=== PATIENT | female | born 1970 | race Hispanic/Latino ===

== ENCOUNTER 2018-12-11 16:45 | Emergency (ER) | payer SELFPAY ==
[2018-12-11] MEDS ORDERED: MAG HYDROX/AL HYDROX/SIMETH ES 30 ML SUSP UDCUP ONE (17:17)
[2018-12-11] MEDS ORDERED: DICYCLOMINE HCL 20 MG TAB ONE (17:17)
[2018-12-11] MEDS ORDERED: LIDOCAINE HCL 2% VISCOUS 15 ML UDCUP ONE (17:17)
[2018-12-11 17:21] LABS: BASOPHILS % (AUTO) 0.3 % (0.0-5.0); EOSINOPHILS % (AUTO) 1.9 % (0.0-8.0); HEMATOCRIT 37.4 % (36-48); LYMPHOCYTES % (AUTO) 29.3 % (21.0-51.0); MEAN CORPUSCULAR HEMOGLOBIN 31.4 pg (27.0-33.0); MEAN CORPUSCULAR HGB CONC 34.9 g/dL (32.0-36.0); NEUTROPHILS % (AUTO) 61.5 % (40.0-77.0); PLATELET COUNT (AUTO) 296 K/uL (130-400); RED BLOOD CELL COUNT(AUTO) 4.15 MIL/uL (4.00-5.50); RED CELL DISTRIBUTION WIDTH 12.4 % (11.0-15.5); WHITE BLOOD COUNT (AUTO) 8.4 K/uL (4.8-10.8)
[2018-12-11 17:31] LABS: APPEARANCE,URINE Cloudy (CLEAR); BILIRUBIN,URINE Negative (NEGATIVE); COLOR,URINE Dark Yellow (YELLOW); GLUCOSE, URINE (UA) >=1000 mg/dL (NEGATIVE); KETONES,URINE Negative (NEGATIVE); LEUKOCYTE ESTERASE ,URINE Small (NEGATIVE); NITRATE,URINE Negative (NEGATIVE); OCCULT BLOOD,URINE Negative (NEGATIVE); PROTEIN,URINE Negative (NEGATIVE)
[2018-12-11 17:32] LABS: CREATININE 0.6 mg/dL (0.5-1.5); POTASSIUM 3.9 mmol/L (3.5-5.1)
[2018-12-11 17:37] LABS: ALBUMIN 3.6 g/dL (3.5-5.0); BILIRUBIN,TOTAL 0.2 mg/dL (0.2-1.0); TOTAL PROTEIN, SERUM 7.3 g/dL (6.0-8.3)
[2018-12-11 17:40] LABS: BACTERIA,URINE Few /HPF (None Seen); MUCUS,URINE Few LPF (None Seen); RBC,URINE 0-1 /HPF (0-1); SQUAMOUS EPITHELIAL CELL,UR Moderate /HPF (0-2)
== END 2018-12-11 17:56 | disposition home or self-care (01) ==
LOC: EDH 16:45
DX: K29.70 Gastritis, unspecified, without bleeding (principal); E11.9 Type 2 diabetes mellitus without complications; E78.5 Hyperlipidemia, unspecified; Z90.49 Acquired absence of other specified parts of digestive tract; Z90.710 Acquired absence of both cervix and uterus
CPT/HCPCS: 36415; 80053; 81001; 82150; 83690; 85025

== ENCOUNTER 2020-07-01 15:05 | Inpatient (IN) | payer SELFPAY ==
[~2020-07-01] VITALS: Ht 149.9 cm; Wt 50.3 kg
[2020-07-01] MEDS ORDERED: BIVALIRUDIN 250 MG/VIAL IV ONE (15:31)
[2020-07-01] MEDS ORDERED: NITROGLYCERIN 2 MG/VIAL VIAL IV ONE (15:31)
[2020-07-01] MEDS ORDERED: LIDOCAINE HCL 2% 20ML ONE (15:32)
[2020-07-01] MEDS ORDERED: IOHEXOL-350 50ML VIAL IV ONE (15:32)
[2020-07-01] MEDS ORDERED: IOHEXOL 350 MG/ML 100ML INFUS..BTL IV ONE (15:32)
[2020-07-01] MEDS ORDERED: ASPI-1005 PO (16:17)
[2020-07-01] MEDS ORDERED: SITA100T12 PO (16:17)
[2020-07-01] MEDS ORDERED: OMEP20CA12 PO (16:17)
[2020-07-01] MEDS ORDERED: ATOR10 PO (16:17)
[2020-07-01] MEDS ORDERED: METF-446 PO (16:17)
[2020-07-01] MEDS ORDERED: LISI-809 PO (16:17)
[2020-07-01] MEDS ORDERED: MIDAZOLAM HCL 1 MG/ML 2ML VIAL ONE (16:35)
[2020-07-01] MEDS ORDERED: FENTANYL CITRATE PF 50 MCG/1 ML 2ML VIAL ONE (16:35)
[2020-07-01] MEDS ORDERED: METOPROLOL TARTRATE 1 MG/ML 5ML VIAL IV ONE (17:23)
[2020-07-01] MEDS ORDERED: DEXTROSE 50%-WATER 50 ML DISP.SYRIN IV PRN (18:00)
[2020-07-01] MEDS ORDERED: SODIUM CHLORIDE 0.9% 1000ML 1,000 ML IV SCH (18:00)
[2020-07-01 18:45] VITALS: BP 136/94
[2020-07-01 19:10] VITALS: BP 128/75
[2020-07-01] MEDS: INSULIN HUMULIN R 100 UNIT/ML 3ML SQ SCH (21:00)
[2020-07-01] MEDS: RANOLAZINE 500 MG TAB.SR.12H PO SCH (21:07)
[2020-07-01 23:56] VITALS: BP 106/66
[2020-07-02 03:02] VITALS: BP 105/63
[2020-07-02 05:35] LABS: BASOPHILS % (AUTO) 0.4 % (0.0-5.0); EOSINOPHILS % (AUTO) 1.4 % (0.0-8.0); HEMATOCRIT 32.3 % (36-48); LYMPHOCYTES % (AUTO) 38.2 % (21.0-51.0); MEAN CORPUSCULAR HEMOGLOBIN 30.5 pg (27.0-33.0); MEAN CORPUSCULAR HGB CONC 35.6 g/dL (32.0-36.0); MEAN CORPUSCULAR VOLUME 85.7 fL (79-99); MONOCYTES % (AUTO) 7.9 % (3.0-13.0); NEUTROPHILS % (AUTO) 51.8 % (40.0-77.0); PLATELET COUNT (AUTO) 289 K/uL (130-400); RED BLOOD CELL COUNT(AUTO) 3.77 MIL/uL (4.00-5.50); RED CELL DISTRIBUTION WIDTH 11.9 % (11.0-15.5); WHITE BLOOD COUNT (AUTO) 7.9 K/uL (4.8-10.8)
[2020-07-02 05:41] LABS: HEMOGLOBIN A1C 9.2 % (4.0-6.0)
[2020-07-02 05:54] LABS: INR 1.03 (0.85-1.15); PROTHROMBIN TIME 11.2 SEC (9.6-11.6)
[2020-07-02 05:55] LABS: PARTIAL THROMBOPLASTIN TIME 26.5 SEC (26.3-35.5)
[2020-07-02 06:06] LABS: ALBUMIN 2.9 g/dL (3.5-5.0); BILIRUBIN,TOTAL 0.3 mg/dL (0.2-1.0); CREATININE 0.7 mg/dL (0.5-1.5); POTASSIUM 3.6 mmol/L (3.5-5.1); THYROID STIMULATING HORMONE 2.29 uIU/mL (0.36-3.74); TOTAL PROTEIN, SERUM 6.3 g/dL (6.0-8.3)
[2020-07-02] MEDS: INSULIN HUMULIN R 100 UNIT/ML 3ML SQ SCH ×4 (06:12→20:49)
[2020-07-02 08:24] VITALS: BP 104/66
[2020-07-02] MEDS: RANOLAZINE 500 MG TAB.SR.12H PO SCH ×2 (10:11→20:42)
[2020-07-02] MEDS: ATORVASTATIN CALCIUM 40 MG TABLET PO SCH (10:11)
[2020-07-02] MEDS: METOPROLOL SUCCINATE 50 MG TAB.SR.24H PO SCH (10:12)
[2020-07-02] MEDS: ISOSORBIDE MONO 30MG TAB SR PO SCH (10:12)
[2020-07-02] MEDS: ASPIRIN 81MG TAB.CHEW PO SCH (10:12)
[2020-07-02] MEDS: CLOPIDOGREL BISULFATE 75 MG TAB PO SCH (10:12)
[2020-07-02] MEDS: PANTOPRAZOLE SODIUM 40 MG TABLET.DR PO SCH (10:12)
[2020-07-02 12:00] VITALS: BP_SYST 105; BP_SYST 84; BP_DIAS 51; BP_DIAS 53
[2020-07-02 17:29] VITALS: BP 108/69
[2020-07-02 19:28] VITALS: BP 85/54
[2020-07-02 23:11] VITALS: BP 90/56
[2020-07-03 03:04] VITALS: BP 99/65
[2020-07-03 05:49] LABS: MEAN CORPUSCULAR HEMOGLOBIN 30.5 pg (27.0-33.0); MEAN CORPUSCULAR HGB CONC 34.8 g/dL (32.0-36.0); MEAN CORPUSCULAR VOLUME 87.6 fL (79-99); RED BLOOD CELL COUNT(AUTO) 3.54 MIL/uL (4.00-5.50); WHITE BLOOD COUNT (AUTO) 8.5 K/uL (4.8-10.8)
[2020-07-03 06:07] LABS: CREATININE 0.6 mg/dL (0.5-1.5); POTASSIUM 3.3 mmol/L (3.5-5.1)
[2020-07-03] MEDS: INSULIN HUMULIN R 100 UNIT/ML 3ML SQ SCH ×2 (06:20→11:30)
[2020-07-03] MEDS ORDERED: ONDANSETRON HCL 4 MG/2 ML VIAL IVP PRN (07:00)
[2020-07-03] MEDS: ASPIRIN 81MG TAB.CHEW PO SCH (08:24)
[2020-07-03] MEDS: ISOSORBIDE MONO 30MG TAB SR PO SCH (08:25)
[2020-07-03] MEDS: PANTOPRAZOLE SODIUM 40 MG TABLET.DR PO SCH (08:25)
[2020-07-03] MEDS: ATORVASTATIN CALCIUM 40 MG TABLET PO SCH (08:25)
[2020-07-03] MEDS: RANOLAZINE 500 MG TAB.SR.12H PO SCH (08:25)
[2020-07-03] MEDS: METOPROLOL SUCCINATE 50 MG TAB.SR.24H PO SCH (08:25)
[2020-07-03] MEDS: CLOPIDOGREL BISULFATE 75 MG TAB PO SCH (08:25)
[2020-07-03 09:15] VITALS: BP 129/75
[2020-07-03] MEDS ORDERED: POTASSIUM CHLORIDE 10MEQ/100ML 100 ML IV PRN (09:45)
[2020-07-03] MEDS ORDERED: POTASSIUM CHLORIDE 10% ELIXIR 20 MEQ/15 ML UDCUP PO PRN (09:45)
[2020-07-03] MEDS ORDERED: LIDOCAINE HCL-MPF 1% 2ML VIAL IV PRN (09:45)
[2020-07-03] MEDS: POTASSIUM CHLORIDE 20 MEQ ERTAB PO PRN ×2 (10:46→10:54)
[2020-07-03] MEDS ORDERED: RANO500T2 PO (10:51)
[2020-07-03] MEDS ORDERED: ASPI-1005 PO (10:51)
[2020-07-03] MEDS ORDERED: ATOR40TA69 PO (10:51)
[2020-07-03] MEDS ORDERED: Isosorbide Mono 30MG Tab Sr PO (10:51)
[2020-07-03] MEDS ORDERED: METO50TA9 PO (10:51)
[2020-07-03] MEDS ORDERED: CLOP75TA14 PO (10:51)
== END 2020-07-03 12:50 | disposition home or self-care (01) | DRG 287 ==
LOC: 4BH 16:15
PROVIDERS: ADMIT Family Medicine; ATTEND Family Medicine
PROC: B2111ZZ Fluoroscopy of Multiple Coronary Arteries using Low Osmolar Contrast (ICD-10-PCS; principal; 2020-07-01)
PROC: B2151ZZ Fluoroscopy of Left Heart using Low Osmolar Contrast (ICD-10-PCS; 2020-07-01)
PROC: 4A023N7 Measurement of Cardiac Sampling and Pressure, Left Heart, Percutaneous Approach (ICD-10-PCS; 2020-07-01)
PROC: B41F1ZZ Fluoroscopy of Right Lower Extremity Arteries using Low Osmolar Contrast (ICD-10-PCS; 2020-07-01)
DX: I25.119 Atherosclerotic heart disease of native coronary artery with unspecified angina pectoris (principal); I25.5 Ischemic cardiomyopathy; E11.9 Type 2 diabetes mellitus without complications; E78.5 Hyperlipidemia, unspecified; Z90.710 Acquired absence of both cervix and uterus; Z90.49 Acquired absence of other specified parts of digestive tract
CPT/HCPCS: 36415; 71045; 80048; 80053; 80061; 82948; 83036; 84443; 85025; 85027; 85610; 85730; 93458; 99156; 99157; C1760; C1894; G0378; J0583; J1644; J1815; J2250; J2405; J3010; J3490; Q9967

== ENCOUNTER 2020-10-14 14:58 | Emergency (ER) | payer SELFPAY ==
[~2020-10-14] VITALS: Ht 149.9 cm; Wt 49.9 kg
[~2020-10-14 14:58] MED LIST: ASPI-1005 PO; ATOR10 PO; ATOR40TA69 PO; CLOP75TA14 PO; Isosorbide Mono 30MG Tab Sr PO; LISI-809 PO; METF-446 PO; METO50TA9 PO; OMEP20CA12 PO; RANO500T2 PO; SITA100T12 PO
[2020-10-14 16:12] LABS: BASOPHILS % (AUTO) 0.5 % (0.0-5.0); EOSINOPHILS % (AUTO) 0.9 % (0.0-8.0); HEMATOCRIT 40.2 % (36-48); LYMPHOCYTES % (AUTO) 31.9 % (21.0-51.0); MEAN CORPUSCULAR HEMOGLOBIN 30.9 pg (27.0-33.0); MEAN CORPUSCULAR HGB CONC 34.1 g/dL (32.0-36.0); MEAN CORPUSCULAR VOLUME 90.5 fL (79-99); MONOCYTES % (AUTO) 6.1 % (3.0-13.0); NEUTROPHILS % (AUTO) 60.4 % (40.0-77.0); PLATELET COUNT (AUTO) 303 K/uL (130-400); RED BLOOD CELL COUNT(AUTO) 4.44 MIL/uL (4.00-5.50); WHITE BLOOD COUNT (AUTO) 8.5 K/uL (4.8-10.8)
[2020-10-14 16:24] LABS: INR 0.93 (0.85-1.15); PROTHROMBIN TIME 10.2 SEC (9.6-11.6)
[2020-10-14 16:36] LABS: CARBON DIOXIDE 31 mmol/L (21-32); CHLORIDE 100 mmol/L (101-111); CREATININE 0.9 mg/dL (0.5-1.5); GLOMERULAR FILTR. RATE CALC 71 mL/min (>60); GLUCOSE,RANDOM 183 mg/dL (70-105); POTASSIUM 5.2 mmol/L (3.5-5.1); SODIUM SERUM 137 mmol/L (136-145); UREA NITROGEN, BLOOD 17 mg/dL (7-18)
[2020-10-14 16:55] LABS: ALANINE AMINOTRANSFERASE 32 U/L (12-78); ASPARTATE AMINOTRANSFERASE 21 U/L (10-37); BILIRUBIN,TOTAL 0.3 mg/dL (0.2-1.0); CREATINE KINASE, TOTAL 56 U/L (21-232); MYOGLOBIN 27 ng/mL (10-92); TOTAL PROTEIN, SERUM 7.9 g/dL (6.0-8.3); TROPONIN I < 0.04 ng/mL (0.00-0.06)
[2020-10-14 18:10] VITALS: BP 135/75
[2020-10-14 19:00] VITALS: BP 118/76
[2020-10-14] MEDS ORDERED: FAMOTIDINE 20MG TAB 20 MG TAB PO SCH (19:45)
[2020-10-14] MEDS ORDERED: MAG HYDROX/AL HYDROX/SIMETH ES 30 ML SUSP UDCUP PO SCH (19:45)
[2020-10-14] MEDS ORDERED: LIDOCAINE HCL 2% VISCOUS 15 ML UDCUP PO SCH (19:45)
[2020-10-14] MEDS ORDERED: PANTOPRAZOLE SODIUM 40 MG TABLET.DR PO SCH (19:45)
[2020-10-14] MEDS ORDERED: METO5TAB87 PO (20:57)
[2020-10-14] MEDS ORDERED: PANT40TA PO (20:57)
[2020-10-14 21:00] VITALS: BP 120/72
== END 2020-10-14 21:31 | disposition home or self-care (01) ==
LOC: EDH 14:58
DX: K21.9 Gastro-esophageal reflux disease without esophagitis (principal); R07.89 Other chest pain; Z79.899 Other long term (current) drug therapy; Z79.82 Long term (current) use of aspirin; Z79.84 Long term (current) use of oral hypoglycemic drugs
CPT/HCPCS: 36415; 71045; 80053; 82550; 83874; 84484; 85025; 85610; 93005